=== PATIENT | male | born 1950 | race Caucasian/White ===

== ENCOUNTER 2024-09-24 11:17 | Outpatient (CLI) | payer OTHER, SELFPAY ==
--- NOTE | 2024-09-24 11:30 | XR_ITS ---
WS: [id number] XR hip BI 3-4V wo/w pel [id number] REASON FOR EXAM: HIP PAIN FINDINGS: RIGHT HIP: No fracture or focal bone lesion. Hip joint space is intact and relatively well preserved. Minimal subchondral sclerosis of the acetabu lum. No abnormality of the femoral head. No soft tissue abnormality. LEFT HIP: No fracture or focal bone lesion. Hip joint space is intact and relatively well preserved. Minimal subchondral sclerosis of the acetabu lum. No abnormality of the femoral head. No soft tissue abnormality. There is some widening of the pubic symphysis with irregular marginal sclerosis and mild osteophytosi s. XR/XR hip BI 3-4V wo/w pel [id number] IMPRESSION: Minimal osteoarthritis of both hips. Nonspecific chronic pubic symphysis osteitis.
== END 2024-09-24 11:18 | disposition home or self-care (01) ==
DX: M25.552 Pain in left hip (principal); M25.551 Pain in right hip; M86.8X8 Other osteomyelitis, other site
CPT/HCPCS: 73522